=== PATIENT | male | born 1980 | race Caucasian/White ===

== ENCOUNTER 2019-04-18 09:19 | Emergency (ER) | payer OTHER, SELFPAY ==
[2019-04-18 09:20] VITALS: BP 168/112; PULSE 110; RESP 20; TEMP 36.4; O2SAT 97; BMI 40.6
--- NOTE | 2019-04-18 09:36 | US_ITS ---
STUDY: ABDOMINAL ULTRASOUND - RIGHT UPPER QUADRANT REASON FOR VISIT: Male, 38 years old abdominal pain. TECHNIQUE: Ultrasound evaluation of the right upper quadrant was performed with real-time and static rossi-scale imaging. TECHNICAL QUALITY: Limited. Examination limited due to obesity. COMPARISON: None. FINDINGS: Liver: The liver is enlarged and measures 21.4 cm. There is increased echogenicity consistent with fatty infiltration. The bile ducts are within normal limits. There is hepatic color flow. The direction of portal flow is hepatopetal. There is no demonstrated mass lesion. Gallbladder: Normal distended gallbladder. The gallbladder wall measures 3.0 mm. There is a negative sonographic Sullivan's sign. There is no pericholecystic fluid. There are no gallstones. Common Bile Duct (C.B.D.): The common bile duct measures 3.0 mm. Pancreas: There is nonvisualization of the pancreas due to overlying bowel gas. Right Kidney: Normal size of the right kidney. The right kidney measures 14.5 cm x 6.6 cm x 6.8 cm. Normal renal cortex. The right cortex measures 2.0 cm. There is no demonstrated renal mass or cyst. There is no right hydronephrosis. US/Gallbladder IMPRESSION: Hepatomegaly. Diffuse fatty infiltration of the liver. Electronically Signed: Talha Dimas, at 10:42 EST , Service support ,
--- NOTE | 2019-04-18 09:37 | EKG12_ITS ---
Test Reason : AB PAIN Blood Pressure : / mmHG Vent. Rate : 071 BPM Atrial Rate : 071 BPM P-R Int : 166 ms QRS Dur : 080 ms QT Int : 386 ms P-R-T Axes : 015 016 025 degrees QTc Int : 419 ms Normal sinus rhythm Normal ECG Confirmed by JUANCARLOS ORTEGA, SULEMA ([id number]), editor managing director KAREN PROCTOR ([id number]) on 04/20/2019 2:03:11 PM Referred By: Confirmed By:SULEMA BAUER MD
[2019-04-18] MEDS: Morphine 4 MG/ML Syringe IV (09:53)
[2019-04-18] MEDS: 0.9% Normal Saline 1,000 ML 1000 ML IV (09:54)
[2019-04-18] MEDS: Ondansetron 4 MG/2 ML Vial IV (09:54)
[2019-04-18 09:59] VITALS: BP 150/87; PULSE 87; RESP 18; O2SAT 95
[2019-04-18 10:12] LABS: Absolute Lymphocyte Count 1.94 X10^3/uL (0.83-4.51); Absolute Neutrophil Count 6.9 X10^3/uL (2.0-7.7); Basophil# 0.06 X10^3/uL; Basophil% 0.6 % (0-1); Eosinophil# 0.12 X10^3/uL; Eosinophils% 1.2 % (0-5); Hematocrit 46.1 % (40-54); Hemoglobin 16.2 g/dL (13.0-16.5); Lymphocyte # 1.94 X10^3/ul (4.0); Mean Corp Hgb Conc 35.1 g/dL (32-36); Mean Corpuscular Hgb 31.2 pg (27.0-32.0); Mean Corpuscular Volume 88.8 fL (80-94); Mean Platelet Vol. 8.6 fl (6.2-12.0); Monocyte# 0.65 X10^3/uL; Monocyte% 6.7 % (0-10); NRBC Flagged by Analyzer 0 % (0-5); Platelet Count 316 K/mm3 (150-450); RBC Distribution Width CV 11.9 % (11.6-14.6); RBC Distribution Width SD 38.5 fl (35.1-43.9); Red Blood Count 5.19 M/mm3 (4.6-6.2); White Blood Count 9.7 K/mm3 (4.4-11.0)
[2019-04-18 10:30] LABS: ALB/GLOB Ratio 0.9 RATIO (0.9-2.4); AST(SGOT) 33 U/L (15-37); Alanine Aminotransfer ALT/SGPT 68 U/L (16-61); Albumin, Serum 3.9 g/dL (3.2-5.0); Alkaline Phosphatase 88 U/L (45-117); Anion Gap 8 (5-15); BUN 13 mg/dL (7-18); BUN/Creat Ratio 15.2 RATIO (10-20); Calcium,Total 8.7 mg/dL (8.5-10.1); Chloride 105 mmol/L (98-107); Creatinine, Serum 0.86 mg/dL (0.70-1.30); EST Glomerular Filtration Rate 107 mL/min (>60); Est Glom Filt Rate - Afr Amer 129 mL/min (>60); Estimated Creatinine Clearance 130.34 ml/min; Globulin 4.5 g/dL (2.2-4.2); Glucose 164 mg/dL (74-106); Lipase 85 U/L (73-393); Potassium 3.9 mmol/L (3.5-5.1); Protein, Total 8.4 g/dL (6.4-8.2); Sodium Level 136 mmol/L (136-145)
[2019-04-18] MEDS: Famotidine 20 MG Tablet 40 MG PO (11:30)
[2019-04-18] MEDS: Mag Hydrox/Al Hydrox/Simeth 30 ML UDC PO (11:30)
[2019-04-18 11:31] VITALS: BP 152/63; PULSE 76; RESP 18; O2SAT 97
--- NOTE | 2019-04-18 12:19 | ED.VIS.GEN ---
History of Present Illness Chief Complaint: Abd Pain Informant: Patient, Family Current Severity: Moderate Maximum Severity: Moderate Narrative: Patient presents with epigastric and right upper quadrant pain for the past 2 to 3 days. It is worse today. She he has no lower abdominal pain he has no radiation into his back. He denies alcohol, he denies chest pain or shortness of breath. Past Medical History - Allergies and Home Meds Allergies/Adverse Reactions: Allergies amoxicillin Allergy (Verified 04/18/19 09:19) Hives Primary Care Physician: Randy Mireles MD [Primary Care Provider] - Past Medical History: None Surgical History: no surgical history Smoking Status: Never smoker Review of Systems General: Denies: Fever ENT: Denies: Sore throat Cardiovascular: Denies: Chest pain Respiratory: Denies: Dyspnea, Cough Gastrointestinal: Reports: Abdominal pain, Nausea. Denies: Constipation, Melena Genitourinary: Denies: Dysuria Musculoskeletal: Denies: Myalgias Skin: Denies: Rash Neurological: Denies: Headache, Weakness Endocrine: Denies: Polyuria Hematologic: Denies: Easy bruising Physical Exam Vital Signs/Narrative: Vital Signs Temp Pulse Resp BP Pulse Ox 04/18/19 11:31 76 18 152/63 H 97 04/18/19 09:59 87 18 150/87 H 95 04/18/19 09:20 97.5 F L 110 H 20 H 168/112 H 97 General: Well nourished, Well developed, Acute Distress Eyes: Perrl ENT: Moist mucous membranes Neck: Supple Cardiovascular: Regular rate, Regular rhythm Respiratory: No distress, CTA bilaterally Abdomen: Soft, - - Is right upper quadrant and epigastric tenderness, there is a negative Sullivan's. No lower abdominal pain no guarding or rebound no back pain Back: Negative for: CVA tenderness Extremities: No edema Skin: Normal color Neurological: Alert Psychological: Normal affect Diagnostic/Tx/Re-eval - Medical Decision Making Patient has a normal work-up and he significantly improved with antacids. He did tell me on repeat evaluation that he takes quite a bit of Motrin for his daily aches and pains. I educated. I will discharge with antacids for home. Discharge stable condition ED Disposition - Plan for ED Patient: Disposition: Home or Assisted Living Diagnosis: Gastritis Prescriptions: Omeprazole 0 mg PO DAILY #30 capsule.dr Prescription Printed Referrals: Randy Mireles MD [Primary Care Provider] - 2 Days
[2019-04-18 12:56] VITALS: BP 158/88; PULSE 89; RESP 14; O2SAT 99
== END 2019-04-18 13:00 | disposition home or self-care (01) ==
PROVIDERS: Emergency Provider Emergency Medicine; Family Provider Family Medicine; PCP Family Medicine
DX: K29.70 Gastritis, unspecified, without bleeding (principal); Z79.899 Other long term (current) drug therapy; Z88.1 Allergy status to other antibiotic agents
CPT/HCPCS: 76705; 80053; 83690; 84484; 85025; 93005; 96361; 96374; 96375; 99283; J7030; J2405

== ENCOUNTER 2021-02-10 11:13 | Inpatient (IN) | payer OTHER, SELFPAY ==
[2021-02-10] VITALS (12 sets, daily range): BP systolic 122–155; BP diastolic 68–89; PULSE 71–99; RESP 18–22; TEMP 36–37.8; O2SAT 86–98; BMI 40.6; BMI 42.0
--- NOTE | 2021-02-10 11:33 | RAD_ITS ---
STUDY: X-RAY CHEST REASON FOR EXAM: Male, 40 years old. cough TECHNIQUE: Frontal portable view of the chest COMPARISON: None. FINDINGS: There is extensive bilateral multifocal nodular pneumonia. There is no pneumothorax, pulmonary edema or pleural effusions. RAD/Chest 1 View (Portable) IMPRESSION: Bilateral Covid pneumonia. Electronically Signed: Sakina Gray MD at 12:13 EDT Tel , Service support ,
--- NOTE | 2021-02-10 11:38 | ED.VIS.DYS ---
HPI History of Present Illness Chief Complaint: Shortness of Breath Informant: patient Onset/Context/Timing Onset: Days (Last February 02) Context: sudden Timing: Continuous and Waxes and wanes Quality: Positive for Dyspnea on exertion; Negative for Orthopnea, PND and Wheezing Current Severity: Mild Maximum Severity: Moderate Worsened by: Exertion and Coughing Relieved by: Nothing Associated Symptoms cough, rhinorrhea and post nasal drip; Negative for ear pain, fever, sore throat, subjective, clear sputum, white sputum, yellow sputum or green sputum Chest Pain: Positive for None Narrative Narrative: Patient is a 40-year-old male with history of diabetes and GERD who presents because of Covid symptoms. Onset of symptoms February 02. Patient had a positive Covid test on February 06. He presents because of no energy, unable to get up to eat. He had a single episode while on commode last evening. He denies black or maroon-colored stool. Does report headache. Eyes double vision, blurred vision loss of vision. Does repeat report mild light sensitivity. Denies neck pain or neck stiffness. He complains of shortness of breath and nonproductive cough. Nuys chest pain. He does report nausea and diarrhea. He states he is urinating more. Has not checked his blood sugar. Not eaten well. PE Risk Factors: Negative for Cancer, OCP + Smoking + > 35, Prior DVT or PE, Recent immobilization, Recent surgery and Recent travel Prior similar symptoms: Yes Recent Illness/Hospitalization: No PFSH PFSH Medical History (Updated 02/10/21 @ 13:[address] Tylor Norris MD) Diabetes Home Medications omeprazole 40 mg PO DAILY 04/18/19 [History Last Taken Unknown] Allergy/AdvReac Type Severity Reaction Status Date / Time amoxicillin Allergy Hives Verified 02/10/21 11:14 no surgical history Social History (Updated 02/10/21 @ 11:[address] Tylor Norris MD) household members: spouse and children Smoking Status: Never smoker alcohol intake: current alcohol intake frequency: holidays/special occasions only substance use type: does not use ROS ROS ED Constitutional Constitutional ED: Reports chills, fever(s) and sweats; Denies weight loss Eyes Eyes: Denies blurry vision, change in vision or diplopia ENT ENT ED: Reports rhinorrhea and sore throat; Denies ear pain Cardiovascular Cardiovascular: Reports racing heartbeat; Denies chest pain, orthopnea, palpitations or paroxysmal nocturnal dyspnea Respiratory/Chest Respiratory/Chest: Reports cough, dyspnea and dyspnea on exertion; Denies orthopnea, paroxysmal nocturnal dyspnea or sputum Gastrointestinal Gastrointestinal: Reports abdominal pain, diarrhea and nausea; Denies constipation, melena or vomiting Genitourinary Genitourinary ED: Reports urinary frequency; Denies dysuria or hematuria Musculoskeletal Musculoskeletal: Reports arthralgias and myalgias; Denies back pain or neck pain Integumentary Denies rash Neurologic Neurologic: Reports headache(s) and weakness; Denies paresthesias Endocrine Endocrinology: Reports polydipsia and polyuria Hematologic/Lymphatic Hematologic/Lymphatic: Denies easy bleeding or easy bruising Allergic/Immunologic Allergic/Immunologic ED: Denies urticaria EXAM Physical Exam Const Vital Signs: 02/10/21 11:14 02/10/21 11:19 02/10/21 11:30 Temperature 96.8 F L 96.8 F L Temperature Source Temporal Temporal Pulse Rate 99 99 Respiratory Rate 22 H 22 H Respiratory Effort Non-Labored Short of Breath Respiratory Depth Normal Blood Pressure 155/89 H 155/89 H Blood Pressure Mean 111 111 Pulse Ox 95 95 Oxygen Delivery Method Room Air Room Air Room Air Positive well nourished, well developed, obese and unkempt General Appearance ED: unkempt and well developed; Negative for NAD or pallor Nutritional Appearance: obese HEENT Reports TM's clear and dry mucous membranes HEENT Narrative: Head is normocephalic. Ears normal. Nares patent with mild discharge. atraumatic Tympanic Membrane ED: Yes TM's clear Mouth ED: Yes dry mucous membranes Mouth: dry mucous membranes Eyes PERRL and EOMs intact bilaterally General Eye ED: Negative for pale conjunctiva or scleral icterus Neck no lymphadenopathy, supple, no meningeal signs and no JVD Resp No normal respiratory effort and No clear to auscultation bilaterally Auscultation: rales bilateral lower and diminished lung sounds Cardio regular rate, regular rhythm, S1 normal heart sound, S2 normal heart sound and no murmurs GI non-tender, non-distended and no masses Auscultation: normoactive bowel sounds Palpation: soft Back/Spine no CVA tenderness and normal to inspection Extremity normal to inspection Extremity Narrative: There is no asymmetry, swelling, discoloration, leg vein distention, palpable cords or tenderness along the distribution of the deep venous system. General Extremety ED: Negative for edema or tenderness General Extremity: Negative for edema Neuro oriented x3 and CN's II-XII intact bilaterally Sensorium / Orientation: alert Psych Psych Narrative: Affect is flat Appearance: unkempt Skin no wounds General Skin Exam: Negative for jaundice or pallor Lesions: no lesions Rashes: no rashes Trauma: other Patient is diaphoretic. MDM MDM MDM Narrative Medical decision making narrative: With history of diabetes, increased urination and thirst will obtain PGT to assess blood sugar. Basic metabolic panel to assess electrolytes and specifically potassium since he has diarrhea and renal function. CBC to rule out anemia. Chest x-ray to confirm suspicion for Covid pneumonia. If patient is discharged he would be a candidate for monoclonal antibiotic therapy. Lab Data Attestation: I reviewed the patient's lab results. Lab results narrative: Patient had an outpatient positive Covid test. Covid test today is negative however. Chest x-ray is consistent with Covid pneumonia. When I went back to reevaluate patient he appears in mild respiratory distress. His pulse ox is 86% on room air. In light of this we will treat with Decadron and call hospitalist for admission Labs: Laboratory Results - last 24 hr 02/10/21 02/10/21 02/10/21 12:20 12:20 12:20 WBC 7.0 RBC 5.04 Hgb 15.8 Hct 44.7 MCV 88.7 MCH 31.3 MCHC 35.3 RDW Std Deviation 37.2 RDW Coeff of Chalino 11.6 Plt Count 220 MPV 9.0 Immature Gran % (Auto) 0.600 Neut % (Auto) 79.0 H Lymph % (Auto) 17.0 L [place] % (Auto) 3.3 Eos % (Auto) 0.0 Baso % (Auto) 0.1 Absolute Neuts (auto) 5.6 Absolute Lymphs (auto) 1.20 Nucleated RBC % 0 D-Dimer Quant (PE/DVT) Sodium 134 L Potassium 4.0 Chloride 96 L Carbon Dioxide 29.0 Anion Gap 9 BUN 14 Creatinine 1.12 Estim Creat Clear Calc 98.15 Est GFR (MDRD) Af Amer 94 Est GFR (MDRD) Non-Af 78 BUN/Creatinine Ratio 12.5 Glucose 249 H Lactic Acid 2.0 Calcium 8.9 Total Bilirubin 0.50 AST 51 H ALT 60 Alkaline Phosphatase 59 Total Protein 8.7 H Albumin 3.4 Globulin 5.3 H Albumin/Globulin Ratio 0.6 L 02/10/21 12:20 WBC RBC Hgb Hct MCV MCH MCHC RDW Std Deviation RDW Coeff of Chalino Plt Count MPV Immature Gran % (Auto) Neut % (Auto) Lymph % (Auto) [place] % (Auto) Eos % (Auto) Baso % (Auto) Absolute Neuts (auto) Absolute Lymphs (auto) Nucleated RBC % D-Dimer Quant (PE/DVT) 1.00 H* Sodium Potassium Chloride Carbon Dioxide Anion Gap BUN Creatinine Estim Creat Clear Calc Est GFR (MDRD) Af Amer Est GFR (MDRD) Non-Af BUN/Creatinine Ratio Glucose Lactic Acid Calcium Total Bilirubin AST ALT Alkaline Phosphatase Total Protein Albumin Globulin Albumin/Globulin Ratio Radiography Chest X-Ray - ED: 1 View, Read by ED Physician, Normal, Heart, Bony Structures and - (Bilateral interstitial infiltrates consistent with Covid pneumonia per my interpretation. X-ray was interpreted by me at 1231.) Diagnostic Testing: Radiology Impression Chest X-Ray 02/10/21 11:33 IMPRESSION: Bilateral Covid pneumonia. Electronically Signed: Sakina Gray MD at 12:13 EDT Tel , Service support , Discharge Plan Triage Chief Complaint: Shortness of Breath ED Provider: Tylor Norris Dx/Rx/DC Orders Clinical Impression: Pneumonia due to 2019 novel coronavirus, Hyperglycemia due to type 2 diabetes mellitus, Acute respiratory failure with hypoxia Prescriptions: No Action omeprazole 40 MG capsule,delayed release(DR/EC) 40 mg PO DAILY RF: 0 Primary Care Provider: Hipolito Santana Referrals: Hipolito Santana [Primary Care Provider] - Disposition Disposition: Acute Care [facility]
--- NOTE | 2021-02-10 11:52 | EKG12_ITS ---
Test Reason : Blood Pressure : / mmHG Vent. Rate : 089 BPM Atrial Rate : 089 BPM P-R Int : 142 ms QRS Dur : 078 ms QT Int : 338 ms P-R-T Axes : 009 016 020 degrees QTc Int : 411 ms Normal sinus rhythm Normal ECG Confirmed by KIM ORTEGA, NORA ([id number]), online editor BRITANY TROTTER ([id number]) on 02/11/2021 1:39:54 PM Referred By: RU Confirmed By:NORA ALVAREZ MD
--- NOTE | 2021-02-10 11:52 | ED.VIS.DYS ---
HPI History of Present Illness Chief Complaint: Shortness of Breath Detail of Chief Complaint: Shortness of breath that started 2 days ago Informant: patient Narrative Narrative: Patient presents to the emergency department complaint of shortness of breath that started 2 days ago. Patient states that he was diagnosed with COVID-19 about 5 days ago. Patient's had symptoms of Covid for about 8 days. Patient's is currently hospitalized with Covid. Patient has had intermittent fevers and does complain of a dry cough. Patient is also had loss of taste and smell. He has had intermittent vomiting about 2-3 episodes per day. Patient generally feels weak. Prior similar symptoms: No PFSH PFSH Home Medications omeprazole 40 mg PO DAILY 04/18/19 [History Last Taken Unknown] Allergy/AdvReac Type Severity Reaction Status Date / Time amoxicillin Allergy Hives Verified 02/10/21 11:14 Social History (Updated 02/10/21 @ 11:[address] Tylor Norris MD) household members: spouse and children Smoking Status: Never smoker alcohol intake: current alcohol intake frequency: holidays/special occasions only substance use type: does not use ROS ROS ED ROS Narrative Generalized weakness Constitutional Constitutional ED: Reports systems reviewed and no addt'l complaints, except as documented; Denies body ache(s), change in weight or chills Eyes Eyes: Denies acute decrease in peripheral vision, change in vision, double vision or loss of vision ENT ENT ED: Reports none; Denies ear pain, lip swelling, loss taste/smell, neck pain, otalgia or sore throat Cardiovascular Cardiovascular: Reports none; Denies abdominal pain, chest pain with activity, leg edema, lightheadedness, palpitations, rapid heart rate or syncope Respiratory/Chest Respiratory/Chest: Reports none, cough and dyspnea; Denies change in mental status, dry cough, hemoptysis, shortness of breath at rest or shortness of breath with exertion Gastrointestinal Gastrointestinal: Reports none; Denies abdominal pain, change in stool character, diarrhea, hematemesis, hematochezia, melena, rectal bleeding or vomiting Genitourinary Genitourinary ED: Reports none; Denies abdominal discomfort, anuria, dysuria, genital pain or polyuria Musculoskeletal Musculoskeletal: Reports none; Denies arthralgias, back pain, difficulty walking, extremity pain, muscle weakness or myalgias Integumentary Reports none; Denies abscess or rash Neurologic Neurologic: Reports none; Denies abnormal gait, confusion, focal weakness, frequent falls, headache(s), loss of vision, numbness, paresthesias, radicular pain, vertigo or weakness Psychiatric Psychiatric: Reports systems reviewed and no addt'l complaints, except as documented and none; Denies behavioral changes, confusion, difficulty concentrating, hallucinations, suicidal ideation, tactile hallucinations or visual hallucinations Endocrine Endocrinology: Denies none, cold intolerance, excessive sweating, fatigue or heat intolerance Hematologic/Lymphatic Hematologic/Lymphatic: Reports none; Denies anemia, easy bleeding or easy bruising Allergic/Immunologic Allergic/Immunologic ED: Denies as per HPI, none, lip swelling, mouth swelling, throat swelling, tongue swelling or hives EXAM Physical Exam Const Vital Signs: 02/10/21 11:14 02/10/21 11:19 02/10/21 11:30 Temperature 96.8 F L 96.8 F L Temperature Source Temporal Temporal Pulse Rate 99 99 Respiratory Rate 22 H 22 H Respiratory Effort Non-Labored Short of Breath Respiratory Depth Normal Blood Pressure 155/89 H 155/89 H Blood Pressure Mean 111 111 Pulse Ox 95 95 Oxygen Delivery Method Room Air Room Air Room Air Positive well nourished and well developed General Appearance ED: well developed and NAD HEENT Reports TM's clear and moist mucous membranes normocephalic and atraumatic; Negative for trauma or tenderness Tympanic Membrane ED: Yes TM's clear Eyes PERRL and EOMs intact bilaterally General Eye ED: Negative for pale conjunctiva or scleral icterus Neck no lymphadenopathy, supple and no JVD General: Negative for tenderness Chest Wall inspection of chest normal and palpation of chest normal Chest: Negative for tenderness Resp normal respiratory effort and clear to auscultation bilaterally Effort and Inspection: Negative for respiratory distress or pain with movement Auscultation: Negative for rhonchi, wheezes or diminished lung sounds Cardio regular rate, regular rhythm, S1 normal heart sound, S2 normal heart sound and no murmurs Peripheral Pulses: pulses 2+ throughout GI normal to inspection, nondistended, normoactive bowel sounds, soft to palpation, non-tender, non-distended and no masses Back/Spine no CVA tenderness and no thoracic nor lumbar tenderness Extremity normal to inspection General Extremety ED: Negative for edema General Extremity: Negative for edema Neuro oriented x3, CN's II-XII intact bilaterally, no sensory deficits noted and gait normal Sensorium / Orientation: awake, alert, oriented to person, oriented to place and oriented to time Motor Exam: strength 5/5 throughout and strength abnormal Psych mental status grossly normal Skin no rashes or lesions noted and no wounds Discharge Plan Triage Chief Complaint: Shortness of Breath ED Provider: Susan Reyes Dx/Rx/DC Orders Prescriptions: No Action omeprazole 40 MG capsule,delayed release(DR/EC) 40 mg PO DAILY RF: 0 Primary Care Provider: NOT,DEFINED
[2021-02-10 12:36] LABS: Absolute Neutrophil Count 5.6 X10^3/uL (2.0-7.7); Basophil# 0.01 X10^3/uL; Basophil% 0.1 % (0-1); Hematocrit 44.7 % (40-54); Hemoglobin 15.8 g/dL (13.0-16.5); Mean Corp Hgb Conc 35.3 g/dL (32-36); Mean Corpuscular Hgb 31.3 pg (27.0-32.0); Mean Corpuscular Volume 88.7 fL (80-94); Monocyte# 0.23 X10^3/uL; Monocyte% 3.3 % (0-10); NRBC Flagged by Analyzer 0 % (0-5); Neutrophil # 5.56 X10^3/uL (2.7-7.7); Platelet Count 220 K/mm3 (150-450); RBC Distribution Width CV 11.6 % (11.6-14.6); RBC Distribution Width SD 37.2 fl (35.1-43.9); Red Blood Count 5.04 M/mm3 (4.6-6.2)
[2021-02-10] MEDS: 0.9% Normal Saline 1,000 ML 150 ML IV (12:36)
[2021-02-10 12:51] LABS: ALB/GLOB Ratio 0.6 RATIO (0.9-2.4); AST(SGOT) 51 U/L (15-37); Alanine Aminotransfer ALT/SGPT 60 U/L (16-61); Albumin, Serum 3.4 g/dL (3.2-5.0); Alkaline Phosphatase 59 U/L (45-117); Anion Gap 9 (5-15); BUN 14 mg/dL (7-18); BUN/Creat Ratio 12.5 RATIO (10-20); Calcium,Total 8.9 mg/dL (8.5-10.1); Chloride 96 mmol/L (98-107); Creatinine, Serum 1.12 mg/dL (0.70-1.30); EST Glomerular Filtration Rate 78 mL/min (>60); Est Glom Filt Rate - Afr Amer 94 mL/min (>60); Estimated Creatinine Clearance 98.15 ml/min; Globulin 5.3 g/dL (2.2-4.2); Glucose 249 mg/dL (74-106); Protein, Total 8.7 g/dL (6.4-8.2); Sodium Level 134 mmol/L (136-145)
--- NOTE | 2021-02-10 14:03 | HP.PCM_ITS ---
HPI - General HPI Narrative SAMAN GIBBONS, is a 40 M with a PMH as outlined who was admitted with a complaint of shortness of breath for 2 days prior to admission. He was diagnosed with COVID 5 days prior to admission, and his is currently admitted for COVID-19 infection. His symptoms started about 8 days prior to admission. He admitted to fevers and chills and an occasional cough and also had loss of taste and smell. He had had associated nausea and vomiting as well as generalized weakness. Patient is unvaccinated. Vitals showed temp of 96.8F, with AL of 99 and RR of 22. He was initially saturating 97% on room air but subsequently desaturated to 86% while on room air. Covid test done was positive. CBC was unremarkable. Chemistry showed sodium of 134, and potassium of 4, and bicarb of 29. Cr was 1.12. CXR showed extensive bilateral multifocal nodular pneumonia, indicative of bilateral pneumonia. D dimer was 1. He is being admitted to be managed acute hypoxic respiratory failure due to COVID pneumonia. [facility] Medical History (Updated 02/10/21 @ 13:[address] Tylor Norris MD) Diabetes Home Medications omeprazole 40 mg PO DAILY 04/18/19 [History Last Taken Unknown] lovastatin 40 mg PO DAILY 02/10/21 [History Last Taken Unknown] metformin 500 mg PO DAILY 02/10/21 [History Last Taken Unknown] Allergy/AdvReac Type Severity Reaction Status Date / Time amoxicillin Allergy Hives Verified 02/10/21 11:14 Social History (Updated 02/10/21 @ 11:[address] Tylor Norris MD) household members: spouse and children Smoking Status: Never smoker alcohol intake: current alcohol intake frequency: holidays/special occasions only substance use type: does not use Vital Signs Vital Signs Vital Signs: 02/10/21 11:14 02/10/21 11:19 02/10/21 11:30 Temperature 96.8 F L 96.8 F L Temperature Source Temporal Temporal Pulse Rate 99 99 Respiratory Rate 22 H 22 H Respiratory Effort Non-Labored Short of Breath Respiratory Depth Normal Blood Pressure 155/89 H 155/89 H Blood Pressure Mean 111 111 Pulse Ox 95 95 Oxygen Delivery Method Room Air Room Air Room Air 02/10/21 13:54 Temperature Temperature Source Pulse Rate Respiratory Rate Respiratory Effort Respiratory Depth Blood Pressure Blood Pressure Mean Pulse Ox 86 Oxygen Delivery Method Room Air Weight Weight: 300 lb Body Mass Index (BMI) 40.6 Physical Exam Const alert, oriented x3 and no apparent distress Constitutional Narrative: morbid obesity General Appearance: cooperative HEENT normocephalic, head/scalp atraumatic and moist oral mucous membranes Eyes PERRL and EOMs intact bilaterally Pupil: sluggish Neck supple and no JVD Resp Resp Narrative: diminished breath sounds bibasally, no wheezes or crackles. On 2L of oxygen. Cardio regular rate, regular rhythm, S1 normal heart sound, S2 normal heart sound and no murmurs GI normal to inspection, nondistended, normoactive bowel sounds, soft to palpation, non-tender and non-distended Extremity no clubbing, cyanosis or edema Skin no rashes or lesions noted Neuro CN's II-XII intact bilaterally Motor Exam: strength 5/5 throughout Psych affect normal Results Lab / Micro Data Result Diagrams: 02/10/21 12:20 02/10/21 12:20 Labs: Laboratory Results - last 24 hr 02/10/21 12:20: WBC 7.0, RBC 5.04, Hgb 15.8, Hct 44.7, MCV 88.7, MCH 31.3, MCHC 35.3, RDW Std Deviation 37.2, RDW Coeff of Chalino 11.6, Plt Count 220, MPV 9.0, Immature Gran % (Auto) 0.600, Neut % (Auto) 79.0 H, Lymph % (Auto) 17.0 L, Pepin % (Auto) 3.3, Eos % (Auto) 0.0, Baso % (Auto) 0.1, Absolute Neuts (auto) 5.6, Absolute Lymphs (auto) 1.20, Nucleated RBC % 0 02/10/21 12:20: Sodium 134 L, Potassium 4.0, Chloride 96 L, Carbon Dioxide 29.0, Anion Gap 9, BUN 14, Creatinine 1.12, Estim Creat Clear Calc 98.15, Est GFR (MDRD) Af Amer 94, Est GFR (MDRD) Non-Af 78, BUN/Creatinine Ratio 12.5, Glucose 249 H, Calcium 8.9, Total Bilirubin 0.50, AST 51 H, ALT 60, Alkaline Phosphatase 59, Total Protein 8.7 H, Albumin 3.4, Globulin 5.3 H, Albumin/Globulin Ratio 0.6 L 02/10/21 12:20: Lactic Acid 2.0 02/10/21 12:20: D-Dimer Quant (PE/DVT) 1.00 H* Micro: Microbiology 02/10/21 12:06 Nasal Secretion SARS-CoV-2 Antigen (Rapid) - Final Radiology Impression Chest X-Ray 02/10/21 11:33 IMPRESSION: Bilateral Covid pneumonia. Electronically Signed: Sakina Gray MD at 12:13 EDT Tel , Service support , Assessment & Plan Assessment/Plan (1) COVID-19 virus infection: (2) Acute respiratory failure with hypoxia: PLAN: #Acute hypoxic respiratory failure due to COVID 19 pneumonia * symptoms started on ThursdayFebruary 02. * Tested positive on ThursdayFebruary 06. * start on remdesivir and decadron. * breathing treatment with bronchodilators. * titrate oxygen to maintain sats >90% #Elevated D dimer * D dimer is 1. Order CTA to rule out PE * #Type 2 diabetes mellitus * on metformin. ISS. Accuchecks ACHS * #GERD: on PPI #Hyperlipidemia: on statin #Morbid obesity: BMI is 40. complicates acute care, expected recovery and prognosis. Code status: Charges/Coding Visit Charges Inpatient E&M: 53235 Init Hosp L3 Procedures Hospitalists Procedures: 80041 Advncd Care Plan 30 Min
--- NOTE | 2021-02-10 14:20 | CT_ITS ---
STUDY: CTA CHEST REASON FOR EXAM: Male, 40 years old. elevated d dimer RADIATION DOSAGE (If Supplied By Facility): CTDIvol = ( 16.23 ) mGy, DLP = ( 481.68 ) mGycm TECHNIQUE: The examination was performed with the intravenous administration of IV 100mL Isovue-370. Post-processing of the angiographic images was performed, with multiplanar reformation and 3D reconstruction. Individualized dose optimization techniques were used for this CT. COMPARISON: Chest x-ray earlier today FINDINGS: Mild bilateral gynecomastia. Normal enhancement of the main pulmonary artery and right and left pulmonary arteries. Normal enhancement of the bilateral peripheral pulmonary arteries. There is no demonstrated pulmonary embolism. Normal thoracic aorta and visualized great vessels. There is no demonstrated aortic dissection. Normal heart and pericardium. Normal mediastinum. Normal hilar regions. Normal visualized trachea and bronchi. The lungs are well expanded. Bilateral patchy groundglass opacities consistent with subsegmental atelectasis or pneumonitis. Normal pleura. Normal chest wall structures. Normal osseous structures. Normal visualized upper abdomen. CT/CTA Chest W/WO Contrast IMPRESSION: 1. No CT evidence of pulmonary embolism. 2. Bilateral subsegmental atelectasis or pneumonitis. Commonly reported imaging features of Covid 19 pneumonia are present. Other processes such as influenza pneumonia and organizing pneumonia as can be seen in drug toxicity and connective tissue disease can cause a similar imaging pattern. Electronically Signed: Agustin Aguilar MD at 16:41 EDT Tel , Service support ,
[2021-02-10] MEDS: dexAMETHasone 10 MG/ML Vial IV (15:04)
[2021-02-10 16:30] LABS: Reflex Lactate? Y
[2021-02-10 16:55] LABS: International Normalized Ratio 1.1; Prothrombin Time (Protime)PT. 13.1 SECONDS (11.7-14.9)
[2021-02-10 17:02] LABS: Alkaline Phosphatase 57 U/L (45-117); CPK Total, Creatine Kinase 421 U/L (39-308); LDH 630 U/L (87-241)
[2021-02-10 17:04] LABS: BNP,B-Type NATRIURETIC PEPTIDE 2.6 pg/mL (0-100)
[2021-02-10 18:46] LABS: Lactic Acid 1.7 mmol/L (0.4-1.9)
[2021-02-10] MEDS: 0.9% Normal Saline 1,000 ML 125 ML IV (21:20)
[2021-02-10] MEDS: Atorvastatin Calcium 10 MG Tablet PO (21:20)
[2021-02-10] MEDS: Enoxaparin 30 MG/0.3 ML Syringe SC (21:20)
--- NOTE | 2021-02-10 23:03 | PCS.PANDOC ---
PANDEMIC DOCUMENTATION INITIATED: Date: 02/10/2021 Time: 1900
[2021-02-11] VITALS (8 sets, daily range): BP systolic 107–121; BP diastolic 64–73; PULSE 67–84; RESP 18–20; TEMP 36.6–37.4; O2SAT 93–96
[2021-02-11 03:36] LABS: Bedside Glucose 284 mg/dL (70-110)
[2021-02-11] MEDS: 0.9% Normal Saline 1,000 ML 125 ML IV (05:33)
[2021-02-11] MEDS: Insulin Lispro 100 UNIT/ML INSULN.PEN SC ×4 (06:38→21:23)
[2021-02-11 07:05] LABS: Bedside Glucose 246 mg/dL (70-110)
[2021-02-11] MEDS: 0.9% Saline Lock 10 ML Syringe IV (09:19)
[2021-02-11] MEDS: Pantoprazole Sodium 40 MG Tablet PO (09:19)
[2021-02-11] MEDS: dexAMETHasone 10 MG/ML Vial 6 MG IV (09:19)
[2021-02-11] MEDS: Enoxaparin 30 MG/0.3 ML Syringe SC ×2 (09:20→21:22)
[2021-02-11 10:35] LABS: ALB/GLOB Ratio 0.7 RATIO (0.9-2.4); AST(SGOT) 50 U/L (15-37); Alanine Aminotransfer ALT/SGPT 61 U/L (16-61); Albumin, Serum 3.6 g/dL (3.2-5.0); Alkaline Phosphatase 57 U/L (45-117); Anion Gap 10 (5-15); BUN 14 mg/dL (7-18); BUN/Creat Ratio 12.3 RATIO (10-20); Calcium,Total 8.9 mg/dL (8.5-10.1); Chloride 97 mmol/L (98-107); Creatinine, Serum 1.14 mg/dL (0.70-1.30); EST Glomerular Filtration Rate 76 mL/min (>60); Est Glom Filt Rate - Afr Amer 92 mL/min (>60); Estimated Creatinine Clearance 96.43 ml/min; Globulin 5.1 g/dL (2.2-4.2); Glucose 246 mg/dL (74-106); Potassium 4.7 mmol/L (3.5-5.1); Protein, Total 8.7 g/dL (6.4-8.2); Sodium Level 133 mmol/L (136-145)
[2021-02-11 11:22] LABS: Absolute Lymphocyte Count 1.19 X10^3/uL (0.83-4.51); Absolute Neutrophil Count 5.9 X10^3/uL (2.0-7.7); Basophil# 0.02 X10^3/uL; Basophil% 0.3 % (0-1); Hematocrit 47.4 % (40-54); Hemoglobin 16.3 g/dL (13.0-16.5); Lymphocyte # 1.19 X10^3/ul (0.83-4.51); Lymphocyte % 16.2 % (19-41); Mean Corp Hgb Conc 34.4 g/dL (32-36); Mean Corpuscular Volume 90.1 fL (80-94); Mean Platelet Vol. 9.8 fl (6.2-12.0); Monocyte# 0.24 X10^3/uL; Monocyte% 3.3 % (0-10); NRBC Flagged by Analyzer 0 % (0-5); Neutrophil # 5.86 X10^3/uL (2.7-7.7); Neutrophil % 79.8 % (47-70); Platelet Count 226 K/mm3 (150-450); RBC Distribution Width CV 11.7 % (11.6-14.6); RBC Distribution Width SD 38.4 fl (35.1-43.9); Red Blood Count 5.26 M/mm3 (4.6-6.2); White Blood Count 7.3 K/mm3 (4.4-11.0)
[2021-02-11 12:45] LABS: Bedside Glucose 297 mg/dL (70-110)
--- NOTE | 2021-02-11 13:10 | CASEMGMT ---
FROILAN EGAN Assessment: Face to Face with pt for initial transition planning/care coordination assessment. RN JULISA introduced self and role at [facility], pt voices understanding and consents to assessment. Pt is A/O x4 and answers all questions appropriately at this time. Pt sitting up in chair with O2 on in no distress. Care providers, pharmacy, and demographics verified/updated. Admitting Dx: acute hypoxic resp failure due to COVID 19 PCP:Max Specialists:NAS Hurtado Preferred Pharmacy: [facility] Insurance: MMO Prescription Benefit: yes LW/HPOA: Pt denies having a LW/DPOA or need for info regarding. LNOK: Stefanie Covarrubias, Living Arrangements: Pt lives with and 2 children in a single story house with 3 steps to enter. Pt reports being I in ADL's and denies concerns at home. Transportation: Pt drives self and denies concerns with transportation. DME/HHC: Pt denies having any DME or hx of HHC. Pt states he was tested for COVID at urgent care in [place] on [address]. His is also positive and hospitalized. His children were positive also. The whole family has been quarantining. Pt states he has family who can provide him with groceries and supplies. Pt provided with a verbal list of local in network DME companies. Pt chose [employer]. Pt states no concerns with going home at time of dc. Pt states no further concerns/needs. CM to follow. Advised pt to ask CM if any further question/concerns/needs arise, voices understanding. Pt Goal: Home Plan: Home
--- NOTE | 2021-02-11 16:24 | PN.HOSP_ITS ---
Subjective Subjective Breathing better. Tolerating 3 l/m NC. Objective Data Objective Data Vital Signs: Vital Signs Temp Pulse Resp BP Pulse Ox 37.4 C H 71 18 114/67 95 02/11/21 13:48 02/11/21 13:48 02/11/21 13:48 02/11/21 13:48 02/11/21 16:09 Oxygen Flow Rate (L/min) 3 Oxygen Delivery Method Nasal Cannula Weight: 140.614 kg Body Mass Index (BMI) 42.0 Intake & Output: Intake and Output for Last 24 Hours 02/09/21 02/10/21 02/11/21 23:59 23:59 23:59 Intake Total 1550 / 2150 3600 / 3600 Output Total 1600 / 1600 Balance 1550 / 1250 1999 / 1999 Lab / Micro Data Result Diagrams: 02/11/21 09:20 02/11/21 09:20 Labs: Laboratory Results - last 24 hr 02/10/21 12:20: PT 13.1, INR 1.1 02/10/21 12:20: Alkaline Phosphatase 57, Lactate Dehydrogenase 630 H, Total Creatine Kinase 421 H, C-React Prot Ext Range 45.30 H 02/10/21 12:20: B-Natriuretic Peptide 2.6 02/10/21 12:20: Procalcitonin 0.10 H 02/10/21 18:00: Lactic Acid 1.7 02/11/21 03:21: POC Glucose 284 H 02/11/21 06:36: POC Glucose 246 H 02/11/21 09:20: WBC 7.3, RBC 5.26, Hgb 16.3, Hct 47.4, MCV 90.1, MCH 31.0, MCHC 34.4, RDW Std Deviation 38.4, RDW Coeff of [place] 11.7, Plt Count 226, MPV 9.8, Immature Gran % (Auto) 0.400, Neut % (Auto) 79.8 H, Lymph % (Auto) 16.2 L, [place] % (Auto) 3.3, Eos % (Auto) 0.0, Baso % (Auto) 0.3, Absolute Neuts (auto) 5.9, Absolute Lymphs (auto) 1.19, Nucleated RBC % 0 02/11/21 09:20: Sodium 133 L, Potassium 4.7, Chloride 97 L, Carbon Dioxide 26.0, Anion Gap 10, BUN 14, Creatinine 1.14, Estim Creat Clear Calc 96.43, Est GFR (MDRD) Af Amer 92, Est GFR (MDRD) Non-Af 76, BUN/Creatinine Ratio 12.3, Glucose 246 H, Calcium 8.9, Total Bilirubin 0.60, AST 50 H, ALT 61, Alkaline Phosphatase 57, Total Protein 8.7 H, Albumin 3.6, Globulin 5.1 H, Albumin/Globulin Ratio 0.7 L 02/11/21 12:18: POC Glucose 297 H Micro: Microbiology 02/10/21 12:06 Nasal Secretion SARS-CoV-2 Antigen (Rapid) - Final Radiography Diagnostic Testing: Radiology Impression Chest CTA 02/10/21 14:[address]: [address] evidence of pulmonary embolism. 2. Bilateral subsegmental atelectasis or pneumonitis. Commonly reported imaging features of Covid 19 pneumonia are present. Other processes such as influenza pneumonia and organizing pneumonia as can be seen in drug toxicity and connective tissue disease can cause a similar imaging pattern. Electronically Signed: Agustin Aguilar MD at 16:41 EDT Tel , Service support , Physical Exam Const alert Constitutional Narrative: up in chair. no respiratory distress. Resp normal respiratory effort, no retractions, no use of accessory muscles and clear to auscultation bilaterally Cardio regular rate, S1 normal heart sound and S2 normal heart sound GI normal to inspection, nondistended, normoactive bowel sounds, soft to palpation, non-tender and non-distended Assessment & Plan Assessment/Plan (1) COVID-19 virus infection: (2) Acute respiratory failure with hypoxia: PLAN: #Acute hypoxic respiratory failure due to COVID 19 pneumonia * symptoms started on ThursdayFebruary 02. * Tested positive on ThursdayFebruary 06. * start on remdesivir and decadron. * breathing treatment with bronchodilators. * titrate oxygen to maintain sats >90%, so far tolerating 3-4 liters. * Plan to monitor overnight, and may consider dc in next 1-2 days if stable or improves. * Discussed that the trajectory of COVID 19 in the unvaccinated (like this patient) can be variable from individual to individual (his also hospitalized with COVID, but is being discharged today) #Elevated D dimer * D dimer is 1. * No PE on CTA #Type 2 diabetes mellitus * ISS. Accuchecks ACHS * uncontrolled, exacerbated by illness and steroids * metformin held for CTA * start glargine and continue SSI #GERD: on PPI #Hyperlipidemia: on statin #Morbid obesity: BMI is 40. complicates acute care, expected recovery and prognosis. Charges/Coding Visit Charges Inpatient E&M: 73502 Subs Hosp L2
[2021-02-11 17:35] LABS: Bedside Glucose 372 mg/dL (70-110)
[2021-02-11] MEDS: Atorvastatin Calcium 10 MG Tablet PO (21:24)
[2021-02-11 22:36] LABS: Bedside Glucose 343 mg/dL (70-110)
[2021-02-12] VITALS (8 sets, daily range): BP systolic 122–130; BP diastolic 61–73; PULSE 60–85; RESP 16–18; TEMP 36–37; O2SAT 88–95
[2021-02-12] MEDS: Insulin Lispro 100 UNIT/ML INSULN.PEN SC ×4 (06:30→21:54)
[2021-02-12 07:06] LABS: Bedside Glucose 235 mg/dL (70-110)
[2021-02-12 07:24] LABS: Absolute Lymphocyte Count 1.28 X10^3/uL (0.83-4.51); Absolute Neutrophil Count 9.2 X10^3/uL (2.0-7.7); Basophil# 0.01 X10^3/uL; Basophil% 0.1 % (0-1); Hemoglobin 13.8 g/dL (13.0-16.5); Lymphocyte # 1.28 X10^3/ul (0.83-4.51); Lymphocyte % 11.6 % (19-41); Mean Corp Hgb Conc 33.7 g/dL (32-36); Mean Corpuscular Hgb 30.7 pg (27.0-32.0); Mean Corpuscular Volume 91.1 fL (80-94); Mean Platelet Vol. 9.3 fl (6.2-12.0); Monocyte# 0.41 X10^3/uL; Monocyte% 3.7 % (0-10); NRBC Flagged by Analyzer 0 % (0-5); Neutrophil # 9.19 X10^3/uL (2.7-7.7); Neutrophil % 83.5 % (47-70); Platelet Count 297 K/mm3 (150-450); RBC Distribution Width CV 11.7 % (11.6-14.6)
[2021-02-12 07:47] LABS: ALB/GLOB Ratio 0.6 RATIO (0.9-2.4); AST(SGOT) 33 U/L (15-37); Alanine Aminotransfer ALT/SGPT 48 U/L (16-61); Albumin, Serum 2.8 g/dL (3.2-5.0); Alkaline Phosphatase 49 U/L (45-117); Anion Gap 7 (5-15); BUN 16 mg/dL (7-18); BUN/Creat Ratio 20.1 RATIO (10-20); Calcium,Total 8.4 mg/dL (8.5-10.1); Chloride 102 mmol/L (98-107); EST Glomerular Filtration Rate 115 mL/min (>60); Est Glom Filt Rate - Afr Amer 140 mL/min (>60); Estimated Creatinine Clearance 137.42 ml/min; Globulin 4.7 g/dL (2.2-4.2); Glucose 264 mg/dL (74-106); Potassium 4.1 mmol/L (3.5-5.1); Protein, Total 7.5 g/dL (6.4-8.2); Sodium Level 136 mmol/L (136-145)
[2021-02-12 08:32] LABS: Hemoglobin A1c 9.7 % (3.8-5.6)
[2021-02-12] MEDS: dexAMETHasone 10 MG/ML Vial 6 MG IV (09:35)
[2021-02-12] MEDS: Pantoprazole Sodium 40 MG Tablet PO (09:35)
[2021-02-12] MEDS: Enoxaparin 30 MG/0.3 ML Syringe SC ×2 (09:36→21:53)
[2021-02-12] MEDS: 0.9% Saline Lock 10 ML Syringe IV ×2 (09:45→16:26)
[2021-02-12 12:35] LABS: Bedside Glucose 322 mg/dL (70-110)
[2021-02-12] MEDS: Sodium Chloride 0.65% 1 SPRAY SPRAY.BTL 2 SPRAY NASAL (13:33)
--- NOTE | 2021-02-12 14:46 | PN.HOSP_ITS ---
Subjective Subjective Increased oxygen requirements. He has been proning himself while in bed. Objective Data Objective Data Vital Signs: Vital Signs Temp Pulse Resp BP Pulse Ox 36.0 C L 77 18 127/69 H 94 02/12/21 13:35 02/12/21 13:35 02/12/21 13:35 02/12/21 13:35 02/12/21 13:35 Oxygen Flow Rate (L/min) 5 Oxygen Delivery Method Nasal Cannula Weight: 140.614 kg Body Mass Index (BMI) 42.0 Intake & Output: Intake and Output for Last 24 Hours 02/10/21 02/11/21 02/12/21 23:59 23:59 23:59 Intake Total 1550 / 2150 4200 / 4800 1950 / 1950 Output Total 1600 / 1600 700 / 700 Balance 1550 / 1250 2600 / 3200 1250 / 1250 Lab / Micro Data Result Diagrams: 02/12/21 06:30 02/12/21 06:30 Labs: Laboratory Results - last 24 hr 02/11/21 17:09: POC Glucose 372 H 02/11/21 21:17: POC Glucose 343 H 02/12/21 06:28: POC Glucose 235 H 02/12/21 06:30: WBC 11.0, RBC 4.50 L, Hgb 13.8, Hct 41.0, MCV 91.1, MCH 30.7, MCHC 33.7, RDW Std Deviation 39.0, RDW Coeff of [place] 11.7, Plt Count 297, MPV 9.3, Immature Gran % (Auto) 1.100 H, Neut % (Auto) 83.5 H, Lymph % (Auto) 11.6 L , [place] % (Auto) 3.7, Eos % (Auto) 0.0, Baso % (Auto) 0.1, Absolute Neuts (auto) 9.2 H, Absolute Lymphs (auto) 1.28, Nucleated RBC % 0 02/12/21 06:30: Sodium 136, Potassium 4.1, Chloride 102, Carbon Dioxide 27.0, Anion Gap 7, BUN 16, Creatinine 0.80, Estim Creat Clear Calc 137.42, Est GFR (MDRD) Af Amer 140, Est GFR (MDRD) Non-Af 115, BUN/Creatinine Ratio 20.1 H, Glucose 264 H, Calcium 8.4 L, Total Bilirubin 0.50, AST 33, ALT 48, Alkaline Phosphatase 49, Total Protein 7.5, Albumin 2.8 L, Globulin 4.7 H, Albumin/Globulin Ratio 0.6 L 02/12/21 06:30: Hemoglobin A1c 9.7 H 02/12/21 12:23: POC Glucose 322 H Micro: Microbiology 02/10/21 12:06 Nasal Secretion SARS-CoV-2 Antigen (Rapid) - Final Physical Exam Const alert Constitutional Narrative: up in chair. afebrile. non-toxic. Resp normal respiratory effort, no retractions, no use of accessory muscles and clear to auscultation bilaterally Cardio regular rate, regular rhythm, S1 normal heart sound and S2 normal heart sound GI normal to inspection, nondistended, normoactive bowel sounds, soft to palpation, non-tender and non-distended GI Narrative: obese Extremity normal to inspection Neuro Sensorium / Orientation: awake and alert Psych affect normal Assessment & Plan Assessment/Plan (1) COVID-19 virus infection: (2) Acute respiratory failure with hypoxia: PLAN: #Acute hypoxic respiratory failure due to COVID 19 pneumonia * overall worse * symptoms started on ThursdayFebruary 02. * Tested positive on ThursdayFebruary 06. * start on remdesivir and decadron. * breathing treatment with bronchodilators. * titrate oxygen to maintain sats >90% * Discussed that the trajectory of COVID 19 in the unvaccinated (like this patient) can be variable from individual to individual (his was also hospitalized with COVID, but was discharged 02/11) * trial furosemide #Elevated D dimer * D dimer is 1. * No PE on CTA #Type 2 diabetes mellitus * ISS. Accuchecks ACHS * uncontrolled, exacerbated by illness and steroids * metformin held for CTA * start glargine and continue SSI #GERD: on PPI #Hyperlipidemia: on statin #Morbid obesity: BMI is 40. complicates acute care, expected recovery and prognosis. Charges/Coding Visit Charges Inpatient E&M: 04722 Subs Hosp L2
[2021-02-12] MEDS: Furosemide 40 MG/4 ML Vial IV (16:21)
[2021-02-12 16:35] LABS: Bedside Glucose 367 mg/dL (70-110)
[2021-02-12] MEDS: hydroCHLOROthiazide 12.5mg 12.5 MG PO (21:53)
[2021-02-12] MEDS: Lisinopril 10 MG Tablet PO (21:53)
[2021-02-12] MEDS: Atorvastatin Calcium 10 MG Tablet PO (21:54)
[2021-02-12 23:21] LABS: Bedside Glucose 320 mg/dL (70-110)
[2021-02-13] VITALS (8 sets, daily range): BP systolic 120–137; BP diastolic 58–80; PULSE 50–75; RESP 18; TEMP 36.2–36.6; O2SAT 84–94
[2021-02-13] MEDS: Insulin Lispro 100 UNIT/ML INSULN.PEN SC ×4 (06:38→22:10)
[2021-02-13 06:51] LABS: Bedside Glucose 270 mg/dL (70-110)
[2021-02-13 07:23] LABS: ALB/GLOB Ratio 0.7 RATIO (0.9-2.4); AST(SGOT) 39 U/L (15-37); Alanine Aminotransfer ALT/SGPT 48 U/L (16-61); Albumin, Serum 3.1 g/dL (3.2-5.0); Alkaline Phosphatase 53 U/L (45-117); Anion Gap 7 (5-15); BUN 17 mg/dL (7-18); BUN/Creat Ratio 21.7 RATIO (10-20); Calcium,Total 8.6 mg/dL (8.5-10.1); Chloride 100 mmol/L (98-107); Creatinine, Serum 0.78 mg/dL (0.70-1.30); EST Glomerular Filtration Rate 117 mL/min (>60); Est Glom Filt Rate - Afr Amer 142 mL/min (>60); Estimated Creatinine Clearance 140.94 ml/min; Globulin 4.3 g/dL (2.2-4.2); Glucose 258 mg/dL (74-106); Potassium 4.2 mmol/L (3.5-5.1); Protein, Total 7.4 g/dL (6.4-8.2); Sodium Level 136 mmol/L (136-145)
[2021-02-13 07:50] LABS: Absolute Lymphocyte Count 1.63 X10^3/uL (0.83-4.51); Absolute Neutrophil Count 5.9 X10^3/uL (2.0-7.7); Basophil# 0.02 X10^3/uL; Basophil% 0.2 % (0-1); Hematocrit 44.3 % (40-54); Lymphocyte # 1.63 X10^3/ul (0.83-4.51); Lymphocyte % 20.3 % (19-41); Mean Corp Hgb Conc 33.9 g/dL (32-36); Mean Corpuscular Hgb 30.5 pg (27.0-32.0); Mean Platelet Vol. 9.2 fl (6.2-12.0); Monocyte# 0.41 X10^3/uL; Monocyte% 5.1 % (0-10); NRBC Flagged by Analyzer 0 % (0-5); Neutrophil # 5.89 X10^3/uL (2.7-7.7); Neutrophil % 73.5 % (47-70); POSITIVE MORPHOLOGY YES; Platelet Count 328 K/mm3 (150-450); RBC Distribution Width CV 11.6 % (11.6-14.6); RBC Distribution Width SD 38.4 fl (35.1-43.9); Red Blood Count 4.92 M/mm3 (4.6-6.2)
[2021-02-13 07:51] LABS: Differential Indicated SCAN CRITERIA MET
[2021-02-13 08:18] LABS: Reactive Lymphocyte RARE
[2021-02-13] MEDS: Pantoprazole Sodium 40 MG Tablet PO (08:50)
[2021-02-13] MEDS: dexAMETHasone 10 MG/ML Vial 6 MG IV (08:50)
[2021-02-13] MEDS: Enoxaparin 30 MG/0.3 ML Syringe SC ×2 (08:50→22:11)
[2021-02-13] MEDS: 0.9% Saline Lock 10 ML Syringe IV ×2 (08:51→22:08)
[2021-02-13 11:35] LABS: Bedside Glucose 281 mg/dL (70-110)
--- NOTE | 2021-02-13 13:57 | PN.HOSP_ITS ---
Subjective Subjective Feels better overall. Oxygen has been able to be weaned down to 4 L. Objective Data Objective Data Vital Signs: Vital Signs Temp Pulse Resp BP Pulse Ox 36.4 C L 62 18 120/72 91 02/13/21 08:37 02/13/21 08:37 02/13/21 08:37 02/13/21 08:37 02/13/21 11:28 Oxygen Flow Rate (L/min) [ 4 AMBULATING with Oxygen #1] Oxygen Flow Rate (L/min) [ 0 AMBULATING on Room Air] Oxygen Flow Rate (L/min) [At 0 REST on Room Air] Oxygen Flow Rate (L/min) 4 Oxygen Delivery Method Nasal Cannula Weight: 140.614 kg Body Mass Index (BMI) 42.0 Intake & Output: Intake and Output for Last 24 Hours 02/11/21 02/12/21 02/13/21 23:59 23:59 23:59 Intake Total 4200 / 4800 2635.42 / 2635.42 1164.58 / 1164.58 Output Total 1600 / 1600 700 / 700 600 / 600 Balance 2600 / 3200 1935.42 / 1935.42 564.58 / 564.58 Lab / Micro Data Result Diagrams: 02/13/21 07:30 02/13/21 05:55 Labs: Laboratory Results - last 24 hr 02/12/21 16:22: POC Glucose 367 H 02/12/21 21:39: POC Glucose 320 H 02/13/21 05:55: WBC Cancelled, Corrected WBC Cancelled, RBC Cancelled, Hgb Cancelled, Hct Cancelled, MCV Cancelled, MCH Cancelled, MCHC Cancelled, RDW Std Deviation Cancelled, RDW Coeff of [place]ino Cancelled, Plt Count Cancelled, MPV Cancelled, Immature Gran % (Auto) Cancelled, Neut % (Auto) Cancelled, Lymph % (Auto) Cancelled, [place] % (Auto) Cancelled, Eos % (Auto) Cancelled, Baso % (Auto) Cancelled, Absolute Neuts (auto) Cancelled, Absolute Lymphs (auto) Cancelled, Total Counted Cancelled, Neutrophils % (Manual) Cancelled, Band Neutrophils % Cancelled, Lymphocytes % (Manual) Cancelled, Monocytes % (Manual) Cancelled, Eosinophils % (Manual) Cancelled, Basophils % (Manual) Cancelled, Metamyelocytes % Cancelled, Myelocytes % Cancelled, Promyelocytes % Cancelled, Blast Cells % Cancelled, Plasma Cell % (Manual) Cancelled, Other Cells % Cancelled, Nucleated RBC % Cancelled, Nucleated RBCs/100 WBC Cancelled, Differential Comment Cancelled, Diff Path Review Cancelled, Hypersegmented Neuts Cancelled, Atypical Lymphocytes Cancelled, Reactive Lymphocytes Cancelled, Smudge Cells Cancelled, Toxic Granulation Cancelled, Toxic Vacuolation Cancelled, Dohle Bodies Cancelled, Howard Rods Cancelled, Platelet Estimate Cancelled, Plt Morphology Comment Cancelled, RBC Morphology Cancelled, Polychromasia Cancelled, Hypochromasia Cancelled, Poikilocytosis Cancelled, Basophilic Stippling Cancelled, Anisocytosis Cancelled, Microcytosis Cancelled, Macrocytosis Cancelled, Spherocytes Cancelled, Sickle Cells Cancelled, Target Cells Cancelled, Tear Drop Cells Cancelled, Ovalocytes Cancelled, Stomatocytes Cancelled, [place] Bodies Cancelled, [place] Cells Cancelled, Bite Cells Cancelled, Crenated Cell Cancelled, Acanthocytes (Spur) Cancelled, Rouleaux Cancelled, Schistocytes Cancelled 02/13/21 05:55: Sodium 136, Potassium 4.2, Chloride 100, Carbon Dioxide 29.0, Anion Gap 7, BUN 17, Creatinine 0.78, Estim Creat Clear Calc 140.94, Est GFR (MDRD) Af Amer 142, Est GFR (MDRD) Non-Af 117, BUN/Creatinine Ratio 21.7 H, Glucose 258 H, Calcium 8.6, Total Bilirubin 0.60, AST 39 H, ALT 48, Alkaline Phosphatase 53, Total Protein 7.4, Albumin 3.1 L, Globulin 4.3 H, A lbumin/Globulin Ratio 0.7 L 02/13/21 06:36: POC Glucose 270 H 02/13/21 07:30: WBC 8.0, RBC 4.92, Hgb 15.0, Hct 44.3, MCV 90.0, MCH 30.5, MCHC 33.9, RDW Std Deviation 38.4, RDW Coeff of [place]ino 11.6, Plt Count 328, MPV 9.2, I mmature Gran % (Auto) 0.900, Neut % (Auto) 73.5 H, Lymph % (Auto) 20.3, [place] % (Auto) 5.1, Eos % (Auto) 0.0, Baso % (Auto) 0.2, Absolute Neuts (auto) 5.9, Absolute Lymphs (auto) 1.63, Nucleated RBC % 0, Reactive Lymphocytes RARE 02/13/21 11:17: POC Glucose 281 H Micro: Microbiology 02/10/21 12:06 Nasal Secretion SARS-CoV-2 Antigen (Rapid) - Final Physical Exam Const alert Resp normal respiratory effort, no retractions, no use of accessory muscles and clear to auscultation bilaterally Cardio regular rate, regular rhythm, S1 normal heart sound and S2 normal heart sound GI normal to inspection, nondistended, normoactive bowel sounds, soft to palpation, non-tender and non-distended Skin no rashes or lesions noted and no wounds Assessment & Plan Assessment/Plan (1) COVID-19 virus infection: (2) Acute respiratory failure with hypoxia: PLAN: #Acute hypoxic respiratory failure due to COVID 19 pneumonia * overall worse * symptoms started on ThursdayFebruary 02. Patient will need to quarantine through February 21. * Tested positive on ThursdayFebruary 06. * start on remdesivir and decadron. * breathing treatment with bronchodilators. * titrate oxygen to maintain sats >90% * Discussed that the trajectory of COVID 19 in the unvaccinated (like this patient) can be variable from individual to individual (his was also hospitalized with COVID, but was discharged 02/11) * trial furosemide again #Elevated D dimer * D dimer is 1. * No PE on CTA #Type 2 diabetes mellitus * ISS. Accuchecks ACHS * uncontrolled, exacerbated by illness and steroids * metformin held for CTA * start glargine and continue SSI #GERD: on PPI #Hyperlipidemia: on statin #Morbid obesity: BMI is 40. complicates acute care, expected recovery and prognosis. Discharge planning: Patient oxygen has decreased slightly from yesterday. Informed patient that it is too early to say if that is a trend or not. Plan is to continue to monitor him for another night and if he continues to improve then could consider discharge to home on the . Patient was asking also about when he could return to work. I told him that the earliest he could go to work is on . He states that he works 16-hour days. I told him that he would likely be limited given his severe illness and the respiratory issues before he could return to work. Told him prior be a least a couple weeks before he could consider going back to his full schedule. Greater than 35 minutes which greater than 50% of time was cussed with the patient about COVID-19, inflammatory phase that he is currently experiencing, the treatments, quarantine and when he could return back to work. Charges/Coding Visit Charges Inpatient E&M: 58151 Subs Hosp L3
[2021-02-13 17:05] LABS: Bedside Glucose 307 mg/dL (70-110)
--- NOTE | 2021-02-13 19:32 | PCM.CONS.GEN ---
Assessment & Plan Assessment/Plan (1) COVID-19 virus infection: PLAN: Sx started 02/02. Unvaccinated, also admitted with covid. Much improved, on 4L. On dex and remdesivir. Quarantine until 02/22, recommend vaccine after that. Will follow as needed, thank you (2) Acute respiratory failure with hypoxia: HPI Consult Data Date of Consult: 02/13/21 HPI Narrative HPI Narrative: SAMAN GIBBONS, is a 40 M who presented 02/10 with sx starting 02/02. got sick 01/30. Neither vaccinated. Developed headache, cough, aches, fever/chills, severe n/v/d. Had progressive dyspnea. Kids at home with mild URI symptoms. admitted, now improving. He was admitted, feeling much better. Full ROS performed and neg except as noted above. [facility] Medical History Diabetes Home Medications omeprazole 20 mg PO QHS 04/18/19 [History Last Taken 1 Day Ago ~02/09/21] lisinopril-hydrochlorothiazide 1 tab PO QHS 02/10/21 [History Last Taken Unknown] lovastatin 40 mg PO QHS 02/10/21 [History Last Taken Unknown] metformin 500 mg PO DAILY 02/10/21 [History Last Taken Unknown] Allergy/AdvReac Type Severity Reaction Status Date / Time amoxicillin Allergy Hives Verified 02/10/21 11:14 Social History (Updated 02/10/21 @ 11:[address] Tylor Norris MD) household members: spouse and children Smoking Status: Never smoker alcohol intake: current alcohol intake frequency: holidays/special occasions only substance use type: does not use Physical Exam Const alert, oriented x3 and no apparent distress General Appearance: cooperative Exam Limitations: no limitations HEENT normocephalic and head/scalp atraumatic Eyes PERRL and EOMs intact bilaterally Neck supple and No nodes Resp clear to auscultation bilaterally Auscultation: diminished lung sounds Cardio regular rate and regular rhythm GI normal to inspection, nondistended, normoactive bowel sounds Extremity no clubbing, cyanosis or edema Skin no rashes or lesions noted Neuro CN's II-XII intact bilaterally Lab / Micro Data Result Diagrams: 02/13/21 07:30 02/13/21 05:55 Labs: Laboratory Results - last 24 hr 02/12/21 21:39: POC Glucose 320 H 02/13/21 05:55: WBC Cancelled, Corrected WBC Cancelled, RBC Cancelled, Hgb Cancelled, Hct Cancelled, MCV Cancelled, MCH Cancelled, MCHC Cancelled, RDW Std Deviation Cancelled, RDW Coeff of [place]ino Cancelled, Plt Count Cancelled, MPV Cancelled, Immature Gran % (Auto) Cancelled, Neut % (Auto) Cancelled, Lymph % (Auto) Cancelled, [place] % (Auto) Cancelled, Eos % (Auto) Cancelled, Baso % (Auto) Cancelled, Absolute Neuts (auto) Cancelled, Absolute Lymphs (auto) Cancelled, Total Counted Cancelled, Neutrophils % (Manual) Cancelled, Band Neutrophils % Cancelled, Lymphocytes % (Manual) Cancelled, Monocytes % (Manual) Cancelled, Eosinophils % (Manual) Cancelled, Basophils % (Manual) Cancelled, Metamyelocytes % Cancelled, Myelocytes % Cancelled, Promyelocytes % Cancelled, Blast Cells % Cancelled, Plasma Cell % (Manual) Cancelled, Other Cells % Cancelled, Nucleated RBC % Cancelled, Nucleated RBCs/100 WBC Cancelled, Differential Comment Cancelled, Diff Path Review Cancelled, Hypersegmented Neuts Cancelled, Atypical Lymphocytes Cancelled, Reactive Lymphocytes Cancelled, Smudge Cells Cancelled, Toxic Granulation Cancelled, Toxic Vacuolation Cancelled, Dohle Bodies Cancelled, Howard Rods Cancelled, Platelet Estimate Cancelled, Plt Morphology Comment Cancelled, RBC Morphology Cancelled, Polychromasia Cancelled, Hypochromasia Cancelled, Poikilocytosis Cancelled, Basophilic Stippling Cancelled, Anisocytosis Cancelled, Microcytosis Cancelled, Macrocytosis Cancelled, Spherocytes Cancelled, Sickle Cells Cancelled, Target Cells Cancelled, Tear Drop Cells Cancelled, Ovalocytes Cancelled, Stomatocytes Cancelled, [place] Bodies Cancelled, [place] Cells Cancelled, Bite Cells Cancelled, Crenated Cell Cancelled, Acanthocytes (Spur) Cancelled, Rouleaux Cancelled, Schistocytes Cancelled 02/13/21 05:55: Sodium 136, Potassium 4.2, Chloride 100, Carbon Dioxide 29.0, Anion Gap 7, BUN 17, Creatinine 0.78, Estim Creat Clear Calc 140.94, Est GFR (MDRD) Af Amer 142, Est GFR (MDRD) Non-Af 117, BUN/Creatinine Ratio 21.7 H, Glucose 258 H, Calcium 8.6, Total Bilirubin 0.60, AST 39 H, ALT 48, Alkaline Phosphatase 53, Total Protein 7.4, Albumin 3.1 L, Globulin 4.3 H, Albumin/Globulin Ratio 0.7 L 02/13/21 06:36: POC Glucose 270 H 02/13/21 07:30: WBC 8.0, RBC 4.92, Hgb 15.0, Hct 44.3, MCV 90.0, MCH 30.5, MCHC 33.9, RDW Std Deviation 38.4, RDW Coeff of [place] 11.6, Plt Count 328, MPV 9.2, Immature Gran % (Auto) 0.900, Neut % (Auto) 73.5 H, Lymph % (Auto) 20.3, [place] % (Auto) 5.1, Eos % (Auto) 0.0, Baso % (Auto) 0.2, Absolute Neuts (auto) 5.9, Absolute Lymphs (auto) 1.63, Nucleated RBC % 0, Reactive Lymphocytes RARE 02/13/21 11:17: POC Glucose 281 H 02/13/21 16:55: POC Glucose 307 H
[2021-02-13] MEDS: Atorvastatin Calcium 10 MG Tablet PO (22:08)
[2021-02-13] MEDS: Lisinopril 10 MG Tablet PO (22:08)
[2021-02-13] MEDS: hydroCHLOROthiazide 12.5mg 12.5 MG PO (22:09)
[2021-02-13 22:26] LABS: Bedside Glucose 308 mg/dL (70-110)
[2021-02-14] VITALS (8 sets, daily range): BP systolic 125–141; BP diastolic 68–77; PULSE 53–63; RESP 18–20; TEMP 35.9–36.4; O2SAT 93–95
[2021-02-14] MEDS: Insulin Lispro 100 UNIT/ML INSULN.PEN SC ×4 (06:44→22:29)
[2021-02-14 07:01] LABS: Bedside Glucose 246 mg/dL (70-110)
[2021-02-14 07:25] LABS: Hemoglobin 14.5 g/dL (13.0-16.5); Mean Corp Hgb Conc 33.7 g/dL (32-36); Mean Corpuscular Hgb 30.6 pg (27.0-32.0); Mean Corpuscular Volume 90.7 fL (80-94); Mean Platelet Vol. 9.9 fl (6.2-12.0); Platelet Count 354 K/mm3 (150-450); RBC Distribution Width CV 11.5 % (11.6-14.6); RBC Distribution Width SD 38.1 fl (35.1-43.9); Red Blood Count 4.74 M/mm3 (4.6-6.2); White Blood Count 11.1 K/mm3 (4.4-11.0)
[2021-02-14 07:44] LABS: ALB/GLOB Ratio 0.6 RATIO (0.9-2.4); AST(SGOT) 34 U/L (15-37); Alanine Aminotransfer ALT/SGPT 52 U/L (16-61); Alkaline Phosphatase 56 U/L (45-117); Anion Gap 5 (5-15); BUN 17 mg/dL (7-18); BUN/Creat Ratio 19.1 RATIO (10-20); Calcium,Total 8.8 mg/dL (8.5-10.1); Chloride 100 mmol/L (98-107); Creatinine, Serum 0.89 mg/dL (0.70-1.30); EST Glomerular Filtration Rate 101 mL/min (>60); Est Glom Filt Rate - Afr Amer 123 mL/min (>60); Estimated Creatinine Clearance 123.52 ml/min; Globulin 5.1 g/dL (2.2-4.2); Glucose 243 mg/dL (74-106); Potassium 4.3 mmol/L (3.5-5.1); Protein, Total 8.1 g/dL (6.4-8.2); Sodium Level 135 mmol/L (136-145)
[2021-02-14] MEDS: Enoxaparin 30 MG/0.3 ML Syringe SC ×2 (09:32→22:28)
[2021-02-14] MEDS: 0.9% Saline Lock 10 ML Syringe IV ×2 (09:33→22:28)
[2021-02-14] MEDS: Pantoprazole Sodium 40 MG Tablet PO (09:33)
[2021-02-14] MEDS: dexAMETHasone 10 MG/ML Vial 6 MG IV (09:33)
[2021-02-14 11:36] LABS: Bedside Glucose 270 mg/dL (70-110)
--- NOTE | 2021-02-14 11:47 | NURSING ---
pt 98% on the venti mask at 50% so turned downt to 40% 8l now. pt reported that feels like can get more oxygen this way pt in better spirits and joking a bit even with nurse.
--- NOTE | 2021-02-14 13:02 | PN.HOSP_ITS ---
Subjective Subjective Increased oxygen requirements. Did not tolerate the NC but was able to tolerate VM. Objective Data Objective Data Vital Signs: Vital Signs Temp Pulse Resp BP Pulse Ox 36.3 C L 53 L 20 H 125/77 H 93 02/14/21 09:40 02/14/21 09:40 02/14/21 10:00 02/14/21 09:40 02/14/21 09:40 Oxygen Flow Rate (L/min) [ 4 AMBULATING with Oxygen #1] Oxygen Flow Rate (L/min) [ 0 AMBULATING on Room Air] Oxygen Flow Rate (L/min) [At 0 REST on Room Air] Oxygen Flow Rate (L/min) 12 Oxygen Delivery Method Simple Mask Weight: 140.614 kg Body Mass Index (BMI) 42.0 Intake & Output: Intake and Output for Last 24 Hours 02/12/21 02/13/21 02/14/21 23:59 23:59 23:59 Intake Total 2635.42 / 2635.42 2164.58 / 2164.58 750 / 750 Output Total 700 / 700 600 / 600 575 / 575 Balance 1935.42 / 1935.42 1564.58 / 1564.58 175 / 175 Lab / Micro Data Result Diagrams: 02/14/21 06:20 02/14/21 06:20 Labs: Laboratory Results - last 24 hr 02/13/21 16:55: POC Glucose 307 H 02/13/21 22:06: POC Glucose 308 H 02/14/21 06:20: WBC 11.1 H, RBC 4.74, Hgb 14.5, Hct 43.0, MCV 90.7, MCH 30.6, MCHC 33.7, RDW Std Deviation 38.1, RDW Coeff of [place] 11.5 L, Plt Count 354, MPV 9.9 02/14/21 06:20: Sodium 135 L, Potassium 4.3, Chloride 100, Carbon Dioxide 30.0, Anion Gap 5, BUN 17, Creatinine 0.89, Estim Creat Clear Calc 123.52, Est GFR (MDRD) Af Amer 123, Est GFR (MDRD) Non-Af 101, BUN/Creatinine Ratio 19.1, Glucose 243 H, Calcium 8.8, Total Bilirubin 0.50, AST 34, ALT 52, Alkaline Phosphatase 56, Total Protein 8.1, Albumin 3.0 L, Globulin 5.1 H, Albumin/Globulin Ratio 0.6 L 02/14/21 06:41: POC Glucose 246 H 02/14/21 11:25: POC Glucose 270 H Micro: Microbiology 02/10/21 12:06 Nasal Secretion SARS-CoV-2 Antigen (Rapid) - Final Physical Exam Const alert Resp normal respiratory effort, no retractions, no use of accessory muscles and clear to auscultation bilaterally Cardio regular rate, regular rhythm, S1 normal heart sound and S2 normal heart sound GI normal to inspection, nondistended, normoactive bowel sounds, soft to palpation, non-tender and non-distended Extremity normal to inspection Assessment & Plan Assessment/Plan (1) COVID-19 virus infection: (2) Acute respiratory failure with hypoxia: PLAN: #Acute hypoxic respiratory failure due to COVID 19 pneumonia * overall worse * symptoms started on ThursdayFebruary 02. Patient will need to quarantine through February 21. * Tested positive on ThursdayFebruary 06. * start on remdesivir and decadron. * breathing treatment with bronchodilators. * titrate oxygen to maintain sats >90% * continue with furosemide #Elevated D dimer * D dimer is 1. * No PE on CTA #Type 2 diabetes mellitus * ISS. Accuchecks ACHS * uncontrolled, exacerbated by illness and steroids * metformin held for CTA * start glargine and continue SSI #GERD: on PPI #Hyperlipidemia: on statin #Morbid obesity: BMI is 40. complicates acute care, expected recovery and prognosis. Charges/Coding Visit Charges Inpatient E&M: 39729 Subs Hosp L2
[2021-02-14] MEDS: Furosemide 40 MG/4 ML Vial IV (15:46)
[2021-02-14] MEDS: levoFLOXacin 750 MG Tablet PO (15:46)
--- NOTE | 2021-02-14 16:40 | NURSING ---
spo2 97% still and o2 decreased to 28% ventimask with 6l.
[2021-02-14 17:05] LABS: Bedside Glucose 382 mg/dL (70-110)
[2021-02-14] MEDS: Lisinopril 10 MG Tablet PO (22:28)
[2021-02-14] MEDS: Atorvastatin Calcium 10 MG Tablet PO (22:28)
[2021-02-14 23:01] LABS: Bedside Glucose 262 mg/dL (70-110)
[2021-02-15] VITALS (8 sets, daily range): BP systolic 103–127; BP diastolic 69–82; PULSE 62–77; RESP 18; TEMP 36.2–37; O2SAT 92–96
[2021-02-15 06:13] LABS: Absolute Lymphocyte Count 1.91 X10^3/uL (0.83-4.51); Absolute Neutrophil Count 7.4 X10^3/uL (2.0-7.7); Basophil# 0.03 X10^3/uL; Basophil% 0.3 % (0-1); Eosinophil# 0.07 X10^3/uL; Eosinophils% 0.7 % (0-5); Hematocrit 42.6 % (40-54); Hemoglobin 14.9 g/dL (13.0-16.5); Lymphocyte # 1.91 X10^3/ul (0.83-4.51); Lymphocyte % 18.9 % (19-41); Mean Corpuscular Volume 88.6 fL (80-94); Mean Platelet Vol. 9.1 fl (6.2-12.0); Monocyte# 0.38 X10^3/uL; Monocyte% 3.8 % (0-10); NRBC Flagged by Analyzer 0 % (0-5); Neutrophil # 7.43 X10^3/uL (2.7-7.7); Neutrophil % 73.6 % (47-70); Platelet Count 423 K/mm3 (150-450); RBC Distribution Width CV 11.5 % (11.6-14.6); RBC Distribution Width SD 37.2 fl (35.1-43.9); Red Blood Count 4.81 M/mm3 (4.6-6.2); White Blood Count 10.1 K/mm3 (4.4-11.0)
[2021-02-15 06:33] LABS: ALB/GLOB Ratio 0.6 RATIO (0.9-2.4); AST(SGOT) 31 U/L (15-37); Alanine Aminotransfer ALT/SGPT 53 U/L (16-61); Albumin, Serum 3.1 g/dL (3.2-5.0); Alkaline Phosphatase 55 U/L (45-117); Anion Gap 8 (5-15); BUN 17 mg/dL (7-18); BUN/Creat Ratio 19.2 RATIO (10-20); Calcium,Total 8.6 mg/dL (8.5-10.1); Chloride 102 mmol/L (98-107); Creatinine, Serum 0.88 mg/dL (0.70-1.30); EST Glomerular Filtration Rate 102 mL/min (>60); Est Glom Filt Rate - Afr Amer 124 mL/min (>60); Estimated Creatinine Clearance 124.92 ml/min; Glucose 210 mg/dL (74-106); Potassium 3.6 mmol/L (3.5-5.1); Protein, Total 8.1 g/dL (6.4-8.2); Sodium Level 135 mmol/L (136-145)
[2021-02-15] MEDS: Insulin Lispro 100 UNIT/ML INSULN.PEN SC ×4 (06:48→21:25)
[2021-02-15 06:55] LABS: Bedside Glucose 220 mg/dL (70-110)
[2021-02-15] MEDS: levoFLOXacin 750 MG Tablet PO (09:53)
[2021-02-15] MEDS: dexAMETHasone 10 MG/ML Vial 6 MG IV (09:54)
[2021-02-15] MEDS: Pantoprazole Sodium 40 MG Tablet PO (09:54)
[2021-02-15] MEDS: Enoxaparin 30 MG/0.3 ML Syringe SC ×2 (09:55→21:27)
[2021-02-15] MEDS: Furosemide 40 MG/4 ML Vial IV ×2 (09:55→17:16)
[2021-02-15] MEDS: 0.9% Saline Lock 10 ML Syringe IV (10:09)
--- NOTE | 2021-02-15 10:20 | CASEMGMT ---
RN CM NOTE: Pt currently on 5 L/M O2. Has been up ad gilles in room. Anticipate pt will be ready for discharge this weekend. Will need home ambulatory oxygen testing done prior to discharge. Green sheet placed on chart w/instructions on Home O2 set-up, if pt qualifies. Lauro BSN RN CM
[2021-02-15 11:51] LABS: Bedside Glucose 307 mg/dL (70-110)
[2021-02-15 12:36] LABS: Bedside Glucose 353 mg/dL (70-110)
--- NOTE | 2021-02-15 14:50 | PN.HOSP_ITS ---
Subjective Subjective Breathing better. Ossicilating between 5-6 liters. Overall, feels better. Objective Data Objective Data Vital Signs: Vital Signs Temp Pulse Resp BP Pulse Ox 36.6 C 77 18 103/78 94 02/15/21 10:00 02/15/21 10:00 02/15/21 10:00 02/15/21 10:00 02/15/21 10:00 Oxygen Flow Rate (L/min) [ 4 AMBULATING with Oxygen #1] Oxygen Flow Rate (L/min) [ 0 AMBULATING on Room Air] Oxygen Flow Rate (L/min) [At 0 REST on Room Air] Oxygen Flow Rate (L/min) 5 Oxygen Delivery Method Nasal Cannula Weight: 140.614 kg Body Mass Index (BMI) 42.0 Intake & Output: Intake and Output for Last 24 Hours 02/13/21 02/14/21 02/15/21 23:59 23:59 23:59 Intake Total 2164.58 / 2164.58 2450 / 2450 1750 / 1750 Output Total 600 / 600 2800 / 2800 3125 / 3125 Balance 1564.58 / 1564.58 -350 / -350 -1375 / -1375 Lab / Micro Data Result Diagrams: 02/15/21 05:45 02/15/21 05:45 Labs: Laboratory Results - last 24 hr 02/14/21 16:29: POC Glucose 382 H 02/14/21 22:23: POC Glucose 262 H 02/15/21 05:45: WBC 10.1, RBC 4.81, Hgb 14.9, Hct 42.6, MCV 88.6, MCH 31.0, MCHC 35.0, RDW Std Deviation 37.2, RDW Coeff of [place] 11.5 L, Plt Count 423, MPV 9.1, Immature Gran % (Auto) 2.700 H, Neut % (Auto) 73.6 H, Lymph % (Auto) 18.9 L, [place] % (Auto) 3.8, Eos % (Auto) 0.7, Baso % (Auto) 0.3, Absolute Neuts (auto) 7 .4, Absolute Lymphs (auto) 1.91, Nucleated RBC % 0 02/15/21 05:45: Sodium 135 L, Potassium 3.6, Chloride 102, Carbon Dioxide 25.0, Anion Gap 8, BUN 17, Creatinine 0.88, Estim Creat Clear Calc 124.92, Est GFR (MDRD) Af Amer 124, Est GFR (MDRD) Non-Af 102, BUN/Creatinine Ratio 19.2, Glucose 210 H, Calcium 8.6, Total Bilirubin 0.60, AST 31, ALT 53, Alkaline Phosphatase 55, Total Protein 8.1, Albumin 3.1 L, Globulin 5.0 H, Albumin/Globulin Ratio 0.6 L 02/15/21 06:45: POC Glucose 220 H 02/15/21 09:41: POC Glucose 307 H 02/15/21 12:14: POC Glucose 353 H Micro: Microbiology 02/10/21 12:06 Nasal Secretion SARS-CoV-2 Antigen (Rapid) - Final Physical Exam Const alert Resp normal respiratory effort, no retractions, no use of accessory muscles and clear to auscultation bilaterally Cardio regular rate, regular rhythm, S1 normal heart sound and S2 normal heart sound GI normal to inspection, nondistended, normoactive bowel sounds, soft to palpation, non-tender and non-distended Neuro Sensorium / Orientation: awake and alert Assessment & Plan Assessment/Plan (1) COVID-19 virus infection: (2) Acute respiratory failure with hypoxia: PLAN: #Acute hypoxic respiratory failure due to COVID 19 pneumonia * overall worse * symptoms started on ThursdayFebruary 02. Patient will need to quarantine through February 21. * Tested positive on ThursdayFebruary 06. * start on remdesivir and decadron. * breathing treatment with bronchodilators. * titrate oxygen to maintain sats >90% * continue with furosemide #Elevated D dimer * D dimer is 1. * No PE on CTA #Type 2 diabetes mellitus * ISS. Accuchecks ACHS * uncontrolled, exacerbated by illness and steroids * metformin held for CTA * start glargine and continue SSI * A1c 9.7 * increase glargine to 30 #GERD: on PPI #Hyperlipidemia: on statin #Morbid obesity: BMI is 40. complicates acute care, expected recovery and prognosis. VTE prophylaxis: LMWH Charges/Coding Visit Charges Inpatient E&M: 40638 Subs Hosp L2
--- NOTE | 2021-02-15 15:19 | NURSING ---
placed pt back on venti mask 6L 31% FIO2 due to pt mouth breathing, pt states feels more comfortable than nasal cannula
[2021-02-15] MEDS: guaiFENesin 600 MG Tablet PO (17:16)
[2021-02-15 18:31] LABS: Bedside Glucose 314 mg/dL (70-110)
[2021-02-15] MEDS: Atorvastatin Calcium 10 MG Tablet PO (21:27)
[2021-02-15] MEDS: Lisinopril 10 MG Tablet PO (21:27)
[2021-02-16 03:27] VITALS: BP 123/80; PULSE 69; RESP 18; TEMP 36.2; O2SAT 95
[2021-02-16 03:46] LABS: Bedside Glucose 351 mg/dL (70-110)
[2021-02-16] MEDS: Insulin Lispro 100 UNIT/ML INSULN.PEN SC ×2 (07:11→11:39)
[2021-02-16 07:40] LABS: Bedside Glucose 226 mg/dL (70-110)
[2021-02-16 07:59] VITALS: BP 118/84; PULSE 82; RESP 18; TEMP 36.9; O2SAT 92
[2021-02-16] MEDS: Enoxaparin 30 MG/0.3 ML Syringe SC (08:05)
[2021-02-16] MEDS: dexAMETHasone 10 MG/ML Vial 6 MG IV (08:05)
[2021-02-16] MEDS: 0.9% Saline Lock 10 ML Syringe IV (08:06)
[2021-02-16] MEDS: Furosemide 40 MG/4 ML Vial IV (08:06)
[2021-02-16] MEDS: Pantoprazole Sodium 40 MG Tablet PO (08:06)
[2021-02-16] MEDS: levoFLOXacin 750 MG Tablet PO (08:06)
[2021-02-16] MEDS: guaiFENesin 600 MG Tablet PO (08:06)
[2021-02-16 08:15] VITALS: O2SAT 86; O2SAT 88; O2SAT 90; O2SAT 91
[2021-02-16 11:41] VITALS: O2SAT 86; O2SAT 88; O2SAT 92; O2SAT 93
[2021-02-16 11:55] LABS: Bedside Glucose 414 mg/dL (70-110)
--- NOTE | 2021-02-16 13:36 | DCINST_ITS ---
Discharge Instructions Diet Discharge Diet: No restrictions and 2000 Calorie Control Diet Activity Discharge Activity: Return to Normal Activity Additional Activity Instructions:: Self isolate for at least 20 days since symptoms began 02/02-02/21/2021 AND at least one day (24 hours) have passed since resolution of fever without the use of fever-reducing agents AND improvement of symptoms (e.g., cough, shortness of breath) When around people in the same room, wear a face mask. Individuals also in the room should wear a mask. If possible, use a different bathroom and bedroom. Perform adequate hand hygiene. Avoid sharing dishes, glasses, etc. Dressing / Incision Call your doctor if you observe: Fever of 101 or Higher and Shortness of breath Follow Up Care Test Results: Test results from this visit will be discussed in further detail at your follow-up appointment, if applicable. Discharge Plan Admission Admit Date/Time: 02/10/21 14:25 Primary Reason for Your Visit: COVID 19 Attending Provider: Donny Barraza Primary Care Provider: Hipolito Santana Consulting Providers: Felix Corbin Discharge Orders/Prescriptions Prescriptions: New levofloxacin 750 mg Tablet 750 mg PO DAILY Qty: 2 RF: 0 sodium chloride [Deep Sea Nasal] 0.65 % Aerosol,[place] 2 spray NASAL TID PRN PRN (Reason: NASAL DRYNESS) Qty: 0 RF: 0 Lantus Solostar U-100 Insulin 100 unit/mL (3 mL) Insulin Pen 20 unit subcut QHS 30 Days Qty: 6 RF: 0 dexamethasone [Decadron] 6 mg tablet 6 mg PO DAILY 3 Days Qty: 3 RF: 0 (DME) diabetic supplies, miscellan. Misc See Rx Instructions .ROUTE .MEDSUPPLY Qty: 1 RF: 0 Continued omeprazole 40 MG capsule,delayed release(DR/EC) 20 mg PO QHS RF: 0 lovastatin 40 mg tablet 40 mg PO QHS RF: 0 metformin 500 mg tablet extended release 24 hr 500 mg PO DAILY RF: 0 lisinopril-hydrochlorothiazide 10-12.5 mg tablet 1 tab PO QHS RF: 0 Other Ambulatory Orders: Glucometer (Routine) Location: None Selected Ordered By: Dr. Donny Barraza Referrals / Follow Up: Hipolito Santana [Primary Care Provider] - Within 2 Weeks Disposition Disposition (needs filled in before D/C Order can be placed): Home, Self Care
--- NOTE | 2021-02-16 13:47 | DS.PCM_ITS ---
Providers Date of Admission: 02/10/21 Primary Care Physician: Hipolito Santana Consultations 02/12/21 10:48 Consult: Infectious Disease Routine Consulting Provider: Felix Corbin Reason for Consult: COVID 19 EMERGENT Consult: No MD Notified: Yes Date Notified: 02/12/21 Time Notified: 10:58 Method of Notification: Text Reason For Visit: ACUTE HYPOXIC RESPIRATORY FAILURE DUE TO COVID 19 Diagnosis Discharge Diagnosis (1) COVID-19 virus infection: Status: Acute Code(s): U07.1 - COVID-19 (2) Acute respiratory failure with hypoxia: Status: Acute Code(s): J96.01 - Acute respiratory failure with hypoxia Medications at Discharge Home Medications omeprazole 20 mg PO QHS 04/18/19 lisinopril-hydrochlorothiazide 1 tab PO QHS 02/10/21 lovastatin 40 mg PO QHS 02/10/21 metformin 500 mg PO DAILY 02/10/21 dexamethasone [Decadron] 6 mg PO DAILY 3 Days #3 tab 02/16/21 diabetic supplies, miscellan. #1 ea 02/16/21 insulin glargine [Lantus Solostar U-100 Insulin] 20 unit SUBCUT QHS 30 Days #6 ml 02/16/21 levofloxacin 750 mg PO DAILY #2 tab 02/16/21 sodium chloride [Deep Sea Nasal] 2 spray NASAL TID PRN PRN #0 ml 02/16/21 Hospital Course Operations None Procedures None Summary of Care Provided Minutes Spent on Discharge: 32 Hospital Course: This is a 40-year-old male who became sick February 02 and apparently got short of breath. Patient diagnosed with COVID-19 and had COVID- 19 pneumonia. Patient was started on remdesivir to which he completed and Decadron. Overall patient has improved and not worsened. Patient was ambulated today and require 1 L of oxygen with rest and 5 L with activity. Patient also is a diabetic and her A1c was 9.7. Patient will be on insulin glargine and given glucometer for discharge. Patient advised to isolate until the completed 20-day isolation since onset of his symptoms. Patient will be discharged home in stable condition. Patient's is also contracted COVID-19 but was not discharged with oxygen Physical Exam Const alert Resp normal respiratory effort, no retractions, no use of accessory muscles and clear to auscultation bilaterally Cardio regular rate, regular rhythm, S1 normal heart sound and S2 normal heart sound GI normal to inspection, nondistended, normoactive bowel sounds, soft to palpation, non-tender and non-distended Weight / BMI Weight Weight: 140.614 kg Body Mass Index (BMI) 42.0 ABG / Lab / Microbiology Data Result Diagrams: 02/15/21 05:45 02/15/21 05:45 Laboratory: Laboratory Results - last 24 hr 02/15/21 17:14: POC Glucose 314 H 02/15/21 21:24: POC Glucose 351 H 02/16/21 07:10: POC Glucose 226 H 02/16/21 11:32: POC Glucose 414 H Microbiology: Microbiology 02/10/21 12:06 Nasal Secretion SARS-CoV-2 Antigen (Rapid) - Final D/C Instructions Discharge Diet: No restrictions and 2000 Calorie Control Diet Additional Activity Instructions: Self isolate for at least 20 days since symptoms began 02/02-02/21/2021 AND at least one day (24 hours) have passed since resolution of fever without the use of fever-reducing agents AND improvement of symptoms (e.g., cough, shortness of breath) When around people in the same room, wear a face mask. Individuals also in the room should wear a mask. If possible, use a different bathroom and bedroom. Perform adequate hand hygiene. Avoid sharing dishes, glasses, etc. Call your doctor if you observe: Fever of 101 or Higher and Shortness of breath Meaningful Use Info Meaningful Use Diagnoses (Choose all that apply): None applicable Discharge Plan Admission Admit Date/Time: 02/10/21 14:25 Primary Reason for Your Visit: COVID 19 Attending Provider: Donny Barraza Primary Care Provider: Hipolito Santana Consulting Providers: Felix Corbin Discharge Orders/Prescriptions Prescriptions: New levofloxacin 750 mg Tablet 750 mg PO DAILY Qty: 2 RF: 0 sodium chloride [Deep Sea Nasal] 0.65 % Aerosol,[place] 2 spray NASAL TID PRN PRN (Reason: NASAL DRYNESS) Qty: 0 RF: 0 Lantus Solostar U-100 Insulin 100 unit/mL (3 mL) Insulin Pen 20 unit subcut QHS 30 Days Qty: 6 RF: 0 dexamethasone [Decadron] 6 mg tablet 6 mg PO DAILY 3 Days Qty: 3 RF: 0 (DME) diabetic supplies, miscellan. Misc See Rx Instructions .ROUTE .MEDSUPPLY Qty: 1 RF: 0 Continued omeprazole 40 MG capsule,delayed release(DR/EC) 20 mg PO QHS RF: 0 lovastatin 40 mg tablet 40 mg PO QHS RF: 0 metformin 500 mg tablet extended release 24 hr 500 mg PO DAILY RF: 0 lisinopril-hydrochlorothiazide 10-12.5 mg tablet 1 tab PO QHS RF: 0 Other Ambulatory Orders: Glucometer (Routine) Location: None Selected Ordered By: Dr. Donny Barraza Referrals / Follow Up: Hipolito Santana [Primary Care Provider] - Within 2 Weeks Disposition Disposition (needs filled in before D/C Order can be placed): Home, Self Care Charges/Coding Visit Charges Inpatient E&M: 02173 Disch Hosp
[2021-02-16 14:00] VITALS: BP 124/83; PULSE 96; RESP 18; TEMP 36.3; O2SAT 92
--- NOTE | 2021-02-16 15:10 | NURSING ---
Timothy called with home O2 setup-requested paperwork faxed to [facility] [place].
[2021-02-16 16:23] VITALS: BP 134/89; PULSE 72; RESP 18; TEMP 36.3; O2SAT 93
[2021-02-16 16:35] LABS: Bedside Glucose 333 mg/dL (70-110)
--- NOTE | 2021-02-18 17:23 | CASEMGMT ---
FROILAN EGAN Discharge Follow-up Phone Call: MARCIAL: Rama Strata:2 Call Date:02/18/21 Discharge Date: 02/16/21 Time of Call: 1720 Admitting Diagnosis: COVID-19 This RN CM contacted pt via phone for discharge follow-up. Pt states he has been doing well since discharge. Pt reports to have his O2 decreased to 3l/min and his PO to be running in the 90's. Pt states he obtained his medications and has been taking them as prescribed. Pt states he has not made his follow-up appointment yet but states he will call tomorrow to schedule. Pt denies any questions or concerns at this time. Opal Whatley RN CM
== END 2021-02-16 18:00 | disposition home or self-care (01) | DRG 177 ==
LOC: ED 13:53 → MS3 14:47
PROVIDERS: Emergency Medicine; Internal Medicine Infectious Disease; Admitting Provider Student in an Organized Health Care Education/Training Program; Emergency Provider Emergency Medicine; PCP Student in an Organized Health Care Education/Training Program
DX: U07.1 COVID-19 (principal); J12.82 Pneumonia due to coronavirus disease 2019; J96.01 Acute respiratory failure with hypoxia; H66.92 Otitis media, unspecified, left ear; Z68.41 Body mass index [BMI] 40.0-44.9, adult; E11.65 Type 2 diabetes mellitus with hyperglycemia; E78.5 Hyperlipidemia, unspecified; K21.9 Gastro-esophageal reflux disease without esophagitis; R19.7 Diarrhea, unspecified; E66.01 Morbid (severe) obesity due to excess calories; Z79.4 Long term (current) use of insulin; Z79.890 Hormone replacement therapy; Z79.899 Other long term (current) drug therapy
CPT/HCPCS: 36415; 71045; 71275; 80053; 82550; 82962; 83036; 83605; 83615; 83880; 84075; 84145; 85025; 85027; 85379; 85610; 86140; 87426; 93005; 94762; 97165; 99285; J7030; J7050; Q9967; A4216; J1940